=== PATIENT | female | born 1990 | race American Indian/Alaskan Native ===

== ENCOUNTER 2016-08-18 09:39 | Emergency (ER) | payer MEDICAID, OTHER ==
--- NOTE | 2016-08-18 09:59 | EDM.PDOC ---
ED HISTORY OF PRESENT ILLNESS - General Chief Complaint: Respiratory Problem Stated Complaint: CHEST PAINS Time Seen by Provider: 08/18/16 09:50 Source of Information: Reports: Patient History Limitations: Reports: No limitations - History of Present Illness INITIAL COMMENTS - FREE TEXT/NARRATIVE: This 26 yo female patient reports to the ED with mid sternal chest pains. The patient reports she has had a cough and sore throat for the past 5 days, but has also noticed sharp, intermittent pains in the middle of her chest. The patient reports the pains get worse with coughing and deep breaths. The patient reports she is currently 14 weeks . The patient quit smoking when she found out she was . The patient denies any drug or ETOH use. The patient attempted to get an appointment in the clinic, but was advised to come to the ED due to chest pain. Symptom Onset Date: 08/14/16 Timing/Duration: Reports: Intermittent Severity: moderate Location, General: Reports: chest Quality: Reports: Sharp ("needle-like" ) Improves with: Reports: None Worsens with: Reports: Other (coughing and taking a deep breaths) Context, General: Reports: Other Associated Symptoms (General): Reports: cough - Related Data Allergies/ADRs: Allergies Allergy/AdvReac Type Severity Reaction Status Date / Time No Known Allergies Allergy Verified 02/03/15 14:13 Home Meds: Home Meds Acetaminophen [Tylenol] 650 mg PO Q6H 08/18/16 [History] [id number]/Iron Fumarate/FA/DSS [ 19 Tablet] 1 tab PO DAILY 08/18/16 [ History] Ranitidine [Zantac] 150 mg PO DAILY 08/18/16 [History] Past Medical History - Past Health History Medical/Surgical History: Denies Medical/Surgical History Social & Family History - Tobacco Use Smoking Status *Q: Current Every Day Smoker Years of Tobacco use: 4 Packs/Tins Daily: 0.4 Second Hand Smoke Exposure: Yes ED ROS GENERAL - Review of Systems Review Of Systems: ROS reveals no pertinent complaints other than HPI. ED EXAM, GENERAL - Physical Exam Exam: See Below Exam Limited By: No limitations General Appearance: alert, WD/WN, mild distress Eye Exam: bilateral eye: EOMI, normal inspection, PERRL Ears: normal external exam, normal canal, hearing grossly normal, normal TMs Nose: normal inspection, normal mucosa, no blood Throat/Mouth: Normal inspection, Normal lips, Normal teeth, Normal gums, Normal oropharynx, Normal voice, No airway compromise Head: atraumatic, normocephalic Neck: normal inspection, supple, non-tender, full range of motion Respiratory/Chest: no respiratory distress, lungs clear, normal breath sounds, no accessory muscle use, chest non-tender Cardiovascular: normal peripheral pulses, regular rate, rhythm, no edema, no gallop, no JVD, no murmur, no rub GI/Abdominal: normal bowel sounds, soft, non tender, no organomegaly, no distention, no abnormal bruit, no mass (Female) Exam: Deferred Rectal (Female) Exam: Deferred Back Exam: normal inspection, full range of motion, NT Extremities: normal inspection, normal range of motion, non-tender, normal capillary refill, no pedal edema Neurological: alert, oriented, CN II-XII intact, normal cognition, normal gait, normal reflexes, no motor/sensory deficits Psychiatric: normal affect, normal mood Skin Exam: Warm, Dry, Intact, Normal color, No rash Lymphatic: no adenopathy Course - Vital Signs Last Recorded V/S: Last Vital Signs Temp 35.5 C 08/18/16 09:49 Pulse 94 08/18/16 09:49 Resp 18 08/18/16 09:49 BP 118/64 08/18/16 09:49 Pulse Ox 99 08/18/16 09:49 - Orders/Labs/Meds Orders: Active Orders 24 hr Category Date Time Status EKG Documentation Completion [RC] URGENT Care 08/18/16 09:53 Active Labs: Laboratory Tests 08/18/16 08/18/16 Range/Units 10:00 10:00 WBC 9.2 (5.0-10.0) 10^3/uL RBC 4.85 (4.2-5.4) 10^6/uL Hgb 15.1 (12.0-16.0) g/dL Hct 44.2 (37.0-47.0) % MCV 91.1 (80-100) fL MCH 31.1 (27.0-34.0) pg MCHC 34.2 (33.0-35.0) g/dL Plt Count 253 (150-450) 10^3/uL Neut % (Auto) 71.3 (42.2-75.2) % Lymph % (Auto) 20.2 L (20.5-50.1) % [place] % (Auto) 7.1 (2-8) % Eos % (Auto) 1.2 (1.0-3.0) % Baso % (Auto) 0.2 (0.0-1.0) % Sodium 132 L (135-145) mmol/L Potassium 3.5 L (3.6-5.0) mmol/L Chloride 106 (101-111) mmol/L Carbon Dioxide 19.0 L (21.0-31.0) mmol/L Anion Gap 10.5 BUN 7 (7-18) mg/dL Creatinine 0.6 (0.6-1.3) mg/dL Est Cr Clr Drug Dosing 134.18 mL/min Estimated GFR (MDRD) > 60 BUN/Creatinine Ratio 11.66 Glucose 113 H (74-105) mg/dL Calcium 9.0 (8.4-10.2) mg/dl Total Bilirubin 0.3 (0.2-1.0) mg/dL AST 22 (10-42) IU/L ALT 16 (10-60) IU/L Alkaline Phosphatase 37 L (42-121) IU/L Troponin I < 0.02 (0.00-0.02) ng/ml Total Protein 7.1 (6.7-8.2) g/dl Albumin 4.0 (3.2-5.5) g/dl Globulin 3.1 Albumin/Globulin Ratio 1.29 Departure - Departure Time of Disposition: 10:43 Disposition: Home, Self-Care 01 Condition: fair Clinical Impression: URI (upper respiratory infection) Qualifiers: URI type: unspecified URI Qualified Code(s): J06.9 - Acute upper respiratory infection, unspecified Instructions: Upper Respiratory Infection, Adult, [place]t[facility] Forms: ED Department Discharge Care Plan Goals: The patient was advised of the examination, EKG and lab results during the visit. The patient was given a script for Azithromycin (250 mg) #6 to take 2 by mouth on day 1 and 1 by mouth no days 2-5. If the patient has any additional symptoms or concerns, the patient should follow-up with her primary care facility or return to the emergency department. - My Orders Last 24 Hours: My Active Orders 08/18/16 09:53 EKG Documentation Completion [RC] URGENT - Assessment/Plan Last 24 Hours: My Active Orders 08/18/16 09:53 EKG Documentation Completion [RC] URGENT
[2016-08-18 10:01] VITALS: BP 118/64
[2016-08-18 10:34] LABS: CHLORIDE,CL 106 mmol/L (101-111); SODIUM,NA 132 mmol/L (135-145)
--- NOTE | 2016-08-20 10:13 | EKG ---
08/18/2016- SOFIA RODRIGUEZ - EKG done on a 26-year-old female showing sinus rhythm with heart rate of 66 beats per minute. Normal intervals. Normal axis. No acute ST wave changes. [facility] /[id number]
== END 2016-08-18 10:55 | disposition home or self-care (01) ==
LOC: DL.ED 09:39
DX: O26.892 Other specified pregnancy related conditions, second trimester (principal); J06.9 Acute upper respiratory infection, unspecified; Z3A.14 14 weeks gestation of pregnancy; O99.332 Smoking (tobacco) complicating pregnancy, second trimester
CPT/HCPCS: 36415; 80053; 84484; 85025; 93005; 99285

== ENCOUNTER 2017-03-07 04:53 | Inpatient (IN) | payer MEDICAID ==
[2017-03-07] MEDS ORDERED: Lactated Ringers 1,000 ML IV ONE (05:30)
[2017-03-07] MEDS ORDERED: Methylergonovine 0.2 MG/1 ML Amp IM PRN (06:23)
[2017-03-07] MEDS ORDERED: fentaNYL 100 MCG/2 ML SDV IVPUSH PRN (06:23)
[2017-03-07] MEDS ORDERED: Carboprost Tromethamine 250 MCG/1 ML Amp IM PRN (06:23)
[2017-03-07] MEDS ORDERED: Lactated Ringers 500 ML IV ONE (06:23)
[2017-03-07] MEDS ORDERED: Ondansetron 4 MG/2 ML SDV IV PRN (06:23)
[2017-03-07] MEDS ORDERED: Lidocaine 1% 30 ML SDV INJECT PRN (06:23)
[2017-03-07] MEDS ORDERED: Misoprostol 400 MCG (4 X 100 MCG TAB) RECTAL PRN (06:23)
[2017-03-07] MEDS ORDERED: Zolpidem 5 MG Tab PO PRN (06:38)
[2017-03-07] MEDS: Lactated Ringers 1,000 ML IV SCH ×3 (07:50→22:16)
[2017-03-07] MEDS: Oxytocin/Normal Saline 30 UNIT/500 ML BAG IV SCH (07:51)
--- NOTE | 2017-03-07 08:55 | HP ---
CHIEF COMPLAINT: Back pain with contractions. HISTORY OF PRESENT ILLNESS: A 27-year-old 2, para 0-0-1-0 currently at 40-5/7 weeks based on working due date of 03/02/2017 set by 19+ weeks' ultrasound. The patient presented to Labor and Delivery complaining of back pain intermittently throughout the night and increased pelvic pressure. Denied regular contractions. Having no leakage of fluid or vaginal bleeding. movement has been less than typical, but this improved after some IV fluids. No symptoms of preeclampsia. No other acute concerns at this time. HISTORY: Prior spontaneous at 6 weeks' gestation in 2012 that resolved without any intervention. Initial care at [facility]. Her hepatitis C is negative. Blood type is O positive, antibody screen was negative. Hepatitis B negative. Syphilis testing negative. Rubella nonimmune. HIV negative. Positive urine drug screen for marijuana. Negative gonorrhea and chlamydia. She passed her 1-hour glucose tolerance test. Has had her Tdap and flu vaccines this . Medication exposures have included: 1. Zithromax. 2. Foltx. 3. Ranitidine. 4. Tylenol. 5. Clotrimazole vaginal cream. 6. Famotidine. 7. Omeprazole. She had some alcohol exposure in the first trimester of before realizing she was and before 4 weeks' gestation. PAST MEDICAL HISTORY: Depression that started after her father when she was 18 to 19 years old. She is a former smoker, has irregular periods, chickenpox as a child, marijuana use, and history of tattoos x5 and ear piercings. PAST SURGICAL HISTORY: None. FAMILY HISTORY: Mother alive and healthy. Father from an accident. One sister alive and well. Three brothers are alive and well. A fourth brother has Down syndrome with associated heart defect. Maternal grandmother has diabetes. Maternal grandfather is unknown to her, but alive. Paternal grandmother alive with diabetes. Paternal grandfather alive and well. Paternal uncle with cancer. Paternal aunt with heart disease and diabetes, and there are several sets of twins on the paternal side of the family. SOCIAL HISTORY: She is a former smoker, and last used marijuana about 2 months into the , was a light alcohol user, and last drink prior to 4 weeks of gestation. She lives in [place] and is single. 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 Her boyfriend, Edmundo Ram, works for the [employer] in the [employer] and [employer]. He is reportedly healthy as is his family. This will be their first child together. This was an unexpected , but they are happy about it. REVIEW OF SYSTEMS: No headaches, blurry vision, chest pain, shortness of breath, nausea, vomiting, diarrhea, constipation, or vaginal bleeding. Heartburn has been well controlled. No fever or chills. No other new problems or concerns. PHYSICAL EXAMINATION: Vital Signs: Temperature is afebrile, blood pressure 127/85, and pulse of 83. HEENT: Grossly unremarkable. Neck: Supple without adenopathy. Heart: Regular without murmur. Lungs: Clear to auscultation bilaterally. Abdomen: Gravid, soft, and nontender. Baby palpates vertex. Genitourinary: No external lesions noted. Cervical exam is extremely difficult. The patient was placed in Julia position, and fundal pressure applied by nurse, and I still was only able to reach the anterior lip of the cervix and not adequately assess dilatation, so I am suspecting it is only fingertip to maybe 1 cm, effacement essentially cannot be adequately assessed. Extremities: No edema, erythema, or tenderness noted at this time. Skin: Without obvious lesions. heart tone tracing: Initial tracing 115 beats per minute at baseline with some minimal variability and no accelerations. No worrisome decelerations. Contractions only about every 15 minutes. After IV fluids, baseline heart tones came up to the 120s, accelerations noted, now category 1. ASSESSMENT: 1. Postdates at 40-5/7 weeks' gestation based on a 19-week ultrasound. 2. 2, para 0-0-1-0. 3. Reassuring, but nonreactive heart tracing upon initial assessment requiring intravenous fluids for improvement. 4. History of marijuana abuse. 5. History of first-trimester alcohol exposure. 6. History of depression. 7. Heartburn throughout with several medications used. PLAN: Admit to the hospital at this time for induction of labor. We will be using low-dose Pitocin initially. Cytotec is not felt to be a safe option at this time given the heart tracing. Adjust changes to the plan as needed. [facility] /[id number] SHRUTID
--- NOTE | 2017-03-07 14:34 | PN ---
DATE: 03/07/2017 SUBJECTIVE: The patient is doing well. She is tolerating labor well. She is starting to feel her contractions a little bit more, but not strong by any means. movement has been good. Nurses called me in because of the prolonged periods of minimal or sometimes even absent variability. No decelerations, decreased accelerations, and need for overall assessment. After a fluid bolus, baby's strip did return to category 1, and she has had a total of 4 L of fluid at this time. Her urine has been clear. OBJECTIVE: Vital Signs: Blood pressure 124/74, pulse of 58, temperature of 97.1. heart tones 130 beats per minute at baseline. Moderate cwqt-[id number] variability. Accelerations noted on the strip that I have, however looking on the centricity, she is coming down to a baseline of 115 with minimal variability again, some accelerations look like they are starting contractions, not really tracing anything regular at this time. The cervix remains essentially unreachable even after the patient had gotten up to void. ASSESSMENT: 1. A 40 and 5/7 weeks intrauterine , do question if she is already 42 weeks or possibly even more given poor dating by 19-week ultrasound, which was different by 2-weeks compared to her last menstrual. 2, para 0- 0-1-0. 2. Induction of labor due to non-reassuring tracing, and needing to be delivered sooner rather than later. Other diagnoses, per the H and P. PLAN: At this time, Pitocin has been re-initiated and we will see how things are tolerated. I had a long discussion with her regarding the indications, risks, benefits, and alternatives of primary low transverse section, however, we would still be trying vaginal delivery at this time. Present for the discussion was a nursing attendant as well as the patient's nurse Joana Cruz. Brigitte and her boyfriend's questions were answered at that time, and they are agreeing to proceed. [facility] /[id number] NIRANJAN
[2017-03-08] MEDS: Lactated Ringers 1,000 ML IV SCH ×3 (01:26→04:44)
--- NOTE | 2017-03-08 02:06 | PCM.SN ---
- Free Text/Narrative Note: Intrathecal. Sitting position, sterile prep and drape. 1 % lidocaine w bicarb for skinwheal to L2 L3 interspace. Introducer, 24 Ga pencan x 1. pos CSF, neg heme, neg parasthesia. 20 mcg Pf Sufenta, 30 mcg pf fentanyl, 0.1 ml pf 1:100,000 epi and 6 mg of 0.75% bupivacaine injected after CSF aspiration. Pt to L Lateral position. Procdeure time 0130 to 0200
--- NOTE | 2017-03-08 04:38 | PN ---
DATE: 03/08/2017 SUBJECTIVE: The patient is resting comfortably with her intrathecal in place. Denies any new concerns at this time. OBJECTIVE: Vital Signs: Have remained stable, and she has been afebrile. Current blood pressure 102/51 and pulse of 59. monitoring strip was showing baseline of 115 with some early decelerations and limited accelerations. Cervix was 6 cm when nurse last checked her with bag of water palpable. On my cervical exam, she is almost 7 cm dilated. Bag of water seems to be intact and is ruptured with AmniHook. Scant amount of fluid noted. IUPC then placed without complications or difficulties, and clear fluid was noted in the flashback. Some minor bleeding coming from the vagina, likely from the cervix. The patient slept through the procedure. The monitoring strip is currently showing a baseline closer to 130 with moderate nizc-sp-cqqh variability. Accelerations noted. Continuing to have some early decelerations and variable contraction pattern, remains a little bit irregular, 1 contraction and then a 3-minute break and then 3 contractions in a row for about a minute and a half apart, no pause. Pitocin currently at 16. ASSESSMENT: 1. 2, para 0-0-1-0. 2. A 40-6/7 weeks' gestation. 3. Induction of labor because of concerning heart tracing, currently progressing with labor. 4. Other diagnoses as per her history and physical. PLAN: Continue monitoring with IUPC and using Pitocin to help progression of labor and delivery. We will be hoping for vaginal delivery. The patient has already been prepared for the fact that may become necessary and has agreed to that. [facility] /[id number] NIRANJAN
[2017-03-08] MEDS ORDERED: Simethicone 80 MG Tab.Chew PO PRN (07:02)
[2017-03-08] MEDS ORDERED: Benzocaine/Menthol 20%-0.5% Spray 56 GM Canister TOP PRN (07:02)
[2017-03-08] MEDS ORDERED: Sodium Chloride 0.9% 10 ML Syringe FLUSH PRN (07:02)
[2017-03-08] MEDS ORDERED: Measles, Mumps & Rubella Vaccine 0.5 ML SDV SUBCUT ONE (07:02)
[2017-03-08] MEDS: Oxytocin/Normal Saline 30 UNIT/500 ML BAG IV SCH (07:44)
[2017-03-08] MEDS: Docusate Sodium 100 MG Cap PO PRN (08:30)
[2017-03-08] MEDS: Ferrous Sulfate 325 MG Tab PO SCH (08:30)
[2017-03-08] MEDS: Prenatal Multivitamin with Calcium/Folic Acid/Iron Tab PO SCH (08:30)
[2017-03-08] MEDS: Ibuprofen 800 MG Tab PO PRN ×2 (08:30→15:59)
[2017-03-09] MEDS: Ibuprofen 800 MG Tab PO PRN ×2 (05:12→13:16)
--- NOTE | 2017-03-09 07:05 | DEL ---
ADMISSION DATE: 03/07/2017 DATE: 03/08/2017 PREPROCEDURE DIAGNOSES: 1. A 40-6/7 weeks by 19-week ultrasound. 2. 2, para 0-0-1-0. 3. History of marijuana use. 4. History of alcohol exposure in the first trimester. 5. Heartburn of . 6. Depression. 7. Former smoker. 8. Blood type O positive, rubella nonimmune, and group B Streptococcus negative. 9. Intermittent category 1 and category 2 tracings throughout labor. POSTPROCEDURE DIAGNOSES: 1. A 40-6/7 weeks by 19-week ultrasound. 2. 2, now para 1-0-1-1. 3. History of marijuana use. 4. History of alcohol exposure in the first trimester. 5. Heartburn of . 6. Depression. 7. Former smoker. 8. Blood type O positive, rubella nonimmune, and group B Streptococcus negative. 9. Intermittent category 1 and category 2 tracings throughout labor. 10.Clinical impression of oligohydramnios due to scant amount of fluid noted with artificial rupture and delivery. 11.First-degree laceration repair. 12.Brisk bleeding controlled with bimanual massage and Methergine. Insufficient quantity to meet criteria for hemorrhage. BRIEF HISTORY: A 27-year-old female admitted on 03/07/2017 after presenting with back pain and not being in labor, but having a category 2 tracing. She was given low-dose Pitocin for cervical ripening, which had to be stopped because of nonreassuring status. After the baby recovered, we were able to continue with the Pitocin for ripening and then for induction, and after reaching 6 cm of dilation, artificial rupture of membranes performed with minimal return of fluid. Her labor progressed nicely thereafter. She pushed for about 1 hour and 9 minutes after 8 hours of active labor and had a vaginal delivery as noted below. PROCEDURE IN DETAIL: The patient in dorsal lithotomy position. She delivered a viable female in the OA position over intact perineum. Baby was dried and stimulated. There was a large pocket of fluid noted in the baby's cheek; therefore, mouth and nose were bulb suctioned, and baby placed up on mother's abdomen. After at least 45 seconds, the umbilical cord was doubly clamped and then cut, and baby kept with mother for initial skin to skin and initial assessments. Cord blood sample obtained. Placenta then delivered by gentle cord traction and concomitant uterine massage within a few minutes. There was then some brisk bleeding managed with bimanual massage, and a dose of Methergine was also called for. A small first-degree laceration was repaired with 3-0 Vicryl under 1% lidocaine without epinephrine. The patient tolerated all of the procedures well. There were no complications. FINDINGS: Viable female with scores of 9 and 9. Baby's weight 3485 grams. Meconium stool noted with delivery prior to that scant fluid was clear. ESTIMATED BLOOD LOSS: 400 mL. DISPOSITION: Mother and baby to stay in the room at this time to initiate . [facility] /[id number] MTDD
[2017-03-09] MEDS: Ferrous Sulfate 325 MG Tab PO SCH (08:28)
[2017-03-09] MEDS: Prenatal Multivitamin with Calcium/Folic Acid/Iron Tab PO SCH (08:28)
[2017-03-09] MEDS: Docusate Sodium 100 MG Cap PO PRN ×2 (08:29→20:45)
[2017-03-09] MEDS: Acetaminophen 325 MG Tab PO PRN ×3 (10:26→20:45)
[2017-03-09] MEDS ORDERED: fentaNYL 100 MCG/2 ML SDV ITHECAL ONE (13:11)
--- NOTE | 2017-03-09 15:17 | PN ---
DATE: 03/09/2017 SUBJECTIVE: Post delivery day #1, doing well, tolerating regular diet, ambulating, voiding without difficulties. Not yet had a bowel movement. Bleeding has been well controlled. Some cramping with as would be expected, and reports a little bit of bleeding from the nipples when breast feeding. Otherwise, no problems have arisen, and no concerns today. OBJECTIVE: Vital Signs: Have been stable and reviewed in the chart. Heart: Regular without murmur. Lungs: Clear bilaterally. Abdomen: Soft, nontender. Fundus is firm and at the umbilicus. Extremities: 1+ edema bilaterally. No erythema or tenderness noted. ASSESSMENT: 1. Status post vaginal delivery with first-degree laceration repair, day #1. 2. 2, para 1-0-1-1. 3. History of depression. Monitoring for signs and symptoms of depression. PLAN: Continue routine post delivery care. She will be getting an MMR vaccine prior to discharge from the hospital. Continue with , and she will be seeing the client experience consultant today. Their questions have been answered. [facility] /[id number]
[2017-03-10] MEDS: Ibuprofen 800 MG Tab PO PRN ×2 (02:28→10:03)
[2017-03-10] MEDS: Docusate Sodium 100 MG Cap PO PRN (10:02)
[2017-03-10] MEDS: Prenatal Multivitamin with Calcium/Folic Acid/Iron Tab PO SCH (10:02)
[2017-03-10] MEDS: Ferrous Sulfate 325 MG Tab PO SCH (10:03)
[2017-03-10 10:21] VITALS: BP 124/65
--- NOTE | 2017-03-28 02:34 | DISCH ---
ADMISSION DIAGNOSES: 1. A 40 and 5/7 weeks' by 19-week ultrasound. 2. 2, para 0-0-1-0. 3. History of marijuana use. 4. Blood type O positive, rubella nonimmune, and group B strep negative. 5. History of first-trimester alcohol exposure. 6. Heartburn. 7. Depression. 8. Former smoker. 9. Category II heart tracing. DISCHARGE DIAGNOSES: 1. A 40 and 5/7 weeks' by 19-week ultrasound. 2. 2, now para 1-0-1-1. 3. History of marijuana use. 4. Blood type O positive, rubella nonimmune, and group B strep negative. 5. History of first-trimester alcohol exposure. 6. Heartburn. 7. Depression. 8. Former smoker. 9. Category II heart tracing. 10.Clinical symptoms consistent with oligohydramnios and status post spontaneous vaginal delivery with intrathecal anesthesia and first-degree laceration repair. 11.Anemia of blood loss. BRIEF HISTORY: A 27-year-old female, sent over to the hospital for nonstress test and found to have a category 2 tracing, so induction was then performed with artificial rupture of membranes and IUPC and intrathecal for anesthesia. She went on to spontaneous vaginal delivery with first-degree laceration and no complications. Baby did well. scores of 9 and 9. weight 3485. Female . See history and physical and delivery note for details. Hospital course has been good. She is tolerating regular diet. She is ambulating, voiding, and passing flatus without complications, bonding appropriately with her daughter and . Bleeding has been minimal, and she has no other complaints. DISCHARGE CONDITION: Good. DISCHARGE PHYSICAL EXAMINATION: Vital Signs: Temperature is 97.8, pulse 58, blood pressure 124/65, respiratory rate of 18, and O2 saturations 98% on room air. Heart: Regular without murmur. Lungs: Clear bilaterally with good chest expansion. Abdomen: Soft without masses and fundus firm below the umbilicus. Extremities: No edema, erythema, or tenderness noted. Discharge hemoglobin of 11 and platelets of 173. DISPOSITION: Home with family. MEDICATIONS: 1. Iron 325 mg twice daily. 2. Colace 100 mg twice daily as needed for constipation. 3. Ibuprofen 600 mg every 6 hours as needed for pain. 4. Tylenol 650 mg every 6 hours as needed for pain. 5. vitamins 1 daily. FOLLOWUP: She will make a 6-week exam appointment to be seen at the office. INSTRUCTIONS: Routine post vaginal delivery instructions were provided including to call or come in if she has any increased pain, foul-smelling drainage, discharge, increased bleeding, uterine tenderness, fever, chills, or other concerns. [facility] /[id number]
== END 2017-03-10 12:10 | disposition home or self-care (01) | DRG 775 ==
LOC: DL.OBCHECK 04:53 → DL.OB 06:24 → OBSVTOIN 03-08 06:26
PROVIDERS: ADMIT Family Medicine; ATTEND Family Medicine
PROC: 10E0XZZ Delivery of Products of Conception, External Approach (ICD-10-PCS; principal; 2017-03-08)
PROC: 10907ZC Drainage of Amniotic Fluid, Therapeutic from Products of Conception, Via Natural or Artificial Opening (ICD-10-PCS; 2017-03-08)
PROC: 0HQ9XZZ Repair Perineum Skin, External Approach (ICD-10-PCS; 2017-03-08)
PROC: 00HU33Z Insertion of Infusion Device into Spinal Canal, Percutaneous Approach (ICD-10-PCS; 2017-03-08)
PROC: 3E0R3BZ Introduction of Anesthetic Agent into Spinal Canal, Percutaneous Approach (ICD-10-PCS; 2017-03-08)
DX: O76 Abnormality in fetal heart rate and rhythm complicating labor and delivery (principal); O41.03X0 Oligohydramnios, third trimester, not applicable or unspecified; Z37.0 Single live birth; O48.0 Post-term pregnancy; Z3A.41 41 weeks gestation of pregnancy; O70.0 First degree perineal laceration during delivery; Z87.891 Personal history of nicotine dependence
CPT/HCPCS: 01967; 36415; 59300; 59409; 80305; 85027; 90707; A9270-GY; J2210; J2405; J2590; J3010; J7120

== ENCOUNTER 2022-06-03 11:02 | Emergency (ER) | payer MEDICAID, OTHER ==
[2022-06-03] MEDS ORDERED: Sodium Chloride 0.9% 10 ML Syringe FLUSH PRN (11:14)
[2022-06-03 11:20] VITALS: BP 144/78; PULSE 66
[2022-06-03] MEDS ORDERED: Orphenadrine 60 MG/2 ML Inj IM ONE (12:13)
[2022-06-03] MEDS ORDERED: Ketorolac 30 MG/ML SDV IVPUSH ONE (12:13)
== END 2022-06-03 13:18 | disposition home or self-care (01) ==
LOC: DL.ED 11:02
DX: S29.011A Strain of muscle and tendon of front wall of thorax, initial encounter (principal); M54.10 Radiculopathy, site unspecified
CPT/HCPCS: 36415; 71045; 80053; 83605; 84484; 85025; 85610; 85730; 93005; 93010; 96372; 96374; 99284; 99285-25; J1885; J2360; J3490

== ENCOUNTER 2025-02-02 06:44 | Emergency (ER) | payer OTHER ==
[2025-02-02] MEDS ORDERED: Sodium Chloride 0.9% 10 ML Syringe FLUSH PRN (07:23)
[2025-02-02] MEDS: Ketorolac 30 MG/ML SDV IVPUSH ONE (07:31)
[2025-02-02] MEDS: diphenhydrAMINE 50 MG/ML SDV IVPUSH ONE (07:32)
[2025-02-02] MEDS: Dexamethasone 4 MG/ML SDV IVPUSH ONE (07:32)
[2025-02-02 08:41] VITALS: PULSE 72
[2025-02-02 09:17] VITALS: BP 119/88
== END 2025-02-02 09:34 | disposition home or self-care (01) ==
LOC: DL.ED 06:44
DX: G43.111 Migraine with aura, intractable, with status migrainosus (principal); Z79.899 Other long term (current) drug therapy
CPT/HCPCS: 96374; 96375; 99283; J1100; J1200; J1885; J2765